=== PATIENT | female | born 1940 | race Caucasian/White ===

== ENCOUNTER 2019-11-27 16:32 | Observation (INO) | payer MEDICARE, BC ==
--- NOTE | 2019-11-27 18:43 | ED ---
Neuro HPI - General Chief Complaint: Dizziness Stated Complaint: Neuro/dizziness Time Seen by Provider: 11/27/19 16:36 Source: EMS, RN notes reviewed, old records reviewed Mode of arrival: EMS Limitations: no limitations - History of Present Illness Is the patient presenting with stroke symptoms?: Yes -: unknown Initial Comments: This is a 79-year-old female accepted in transfer for evaluation and possible CVA she complains of right lower extremity weakness, also dizziness and some ataxia with a near syncopal event. Patient continuing to complain of same complaints currently. No headache chest pain shortness breath, no other new significant complaints no change in her symptoms, weakness and numbness is not better dizziness is improved she does not feel like she will pass out she does have history of high blood pressure high cholesterol and diabetes Location: right leg, ataxia History of same: No Place: work (Patient was getting her hair cut) Quality: weak, numb Improves With: none Worsens With: none On Anticoagulants: No Context: gradual onset (Right lower extremity weakness), sudden onset (Near syncopal event) Associated Symptoms: weakness Treatments Prior to Arrival: none - Related Data Home Medications: Home Medications Medication Instructions Recorded Confirmed Albuterol Sulfate [Ventolin HFA] 1 - 2 puff INHALATION RT-Q4H PRN 11/27/19 11/27/19 Allopurinol [Zyloprim] 100 mg PO BID 11/27/19 11/27/19 Ergocalciferol [Vitamin D2] 50,000 unit PO Q30D 11/27/19 11/27/19 Ferrous Sulfate [Feosol] 325 mg PO BID 11/27/19 11/27/19 Furosemide [Lasix] 40 mg PO DAILY 11/27/19 11/27/19 Gabapentin [Neurontin] 100 mg PO HS 11/27/19 11/27/19 Glimepiride [Amaryl] 2 mg PO AC-BID 11/27/19 11/27/19 HYDROcodone/APAP 5-325MG [[place] 1 tab PO Q8H PRN 11/27/19 11/27/19 5-325] Ipratropium-Albuterol Nebulize 3 ml INHALATION RT-QID 11/27/19 11/27/19 [Duoneb 0.5 mg-3 mg/3 ml Soln] Losartan [Cozaar] 25 mg PO DAILY 11/27/19 11/27/19 Metoprolol Succinate [Toprol XL] 150 mg PO DAILY 11/27/19 11/27/19 Sevelamer [Renvela] 800 mg PO AC-BID 11/27/19 11/27/19 amLODIPine [Norvasc] 5 mg PO BID 11/27/19 11/27/19 Allergies/Adverse Reactions: Allergies Allergy/AdvReac Type Severity Reaction Status Date / Time No Known Allergies Allergy Verified 11/27/19 18:35 Review of Systems ROS Statement: Those systems with pertinent positive or pertinent negative responses have been documented in the HPI. ROS Other: All systems not noted in ROS Statement are negative. General Exam Limitations: no limitations General appearance: alert, in no apparent distress Head exam: Present: atraumatic, normocephalic, normal inspection Eye exam: Present: normal appearance, PERRL, EOMI. Absent: scleral icterus, conjunctival injection, periorbital swelling ENT exam: Present: normal exam, mucous membranes moist Neck exam: Present: normal inspection. Absent: tenderness, meningismus, lymphadenopathy Respiratory exam: Present: normal lung sounds bilaterally. Absent: respiratory distress, wheezes, rales, rhonchi, stridor Cardiovascular Exam: Present: regular rate, normal rhythm, normal heart sounds. Absent: systolic murmur, diastolic murmur, rubs, gallop, clicks GI/Abdominal exam: Present: soft, normal bowel sounds. Absent: distended, t enderness, guarding, rebound, rigid Extremities exam: Present: normal inspection, full ROM, normal capillary refill. Absent: tenderness, pedal edema, joint swelling, calf tenderness Back exam: Present: normal inspection Neurological exam: Present: alert, oriented X3, CN II-XII intact Psychiatric exam: Present: normal affect, normal mood Skin exam: Present: warm, dry, intact, normal color. Absent: rash Stroke MDM - NIH Stroke Scale 1a. Level of Consciousness: (0) alert 1b. LOC Questions: (0) answers correctly 1c. LOC Commands: (0) performs tasks correctly 2. Best Gaze: (0) normal 3. Visual: (0) no visual loss 4. Facial Palsy: (0) normal symmetrical movement 5a. Motor Arm Left: (0) no drift 5b. Motor Arm Right: (0) no drift 6a. Motor Leg Left: (0) no drift 6b. Motor Leg Right: (2) some gravity effort 7. Limb Ataxia: (0) absent 8. Sensory: (0) normal 9. Best Language: (0) no aphasia 10. Dysarthria: (0) normal 11. Extinction/Inattention: (0) no abnormality - Thrombolytic Inclusion/Exclusion Thrombolytic Exclusion Criteria: Symptom Onset > 4.5 Hours - Medical Decision Making 79 female ER for neurological evaluation. Patient having some ataxia dizziness and right lower extremity weakness. Patient be admitted for neurology evaluation and hydration Past Medical History Past Medical History: Diabetes Mellitus, Hyperlipidemia, Hypertension History of Any Multi-Drug Resistant Organisms: None Reported Past Surgical History: Orthopedic Surgery, Tonsillectomy Additional Past Surgical History / Comment(s): R HIP REPLACEMENT Past Psychological History: No Psychological Hx Reported Smoking Status: Former smoker Past Alcohol Use History: None Reported Past Drug Use History: None Reported Course Vital Signs 11/27/19 11/27/19 11/27/19 16:36 17:00 18:00 Temperature 98.7 F Pulse Rate 67 64 60 Respiratory 16 16 16 Rate Blood Pressure 116/52 101/53 112/51 O2 Sat by Pulse 97 95 97 Oximetry - Reevaluation(s) Reevaluation #1: 11/27/19 19:10 Medical record and transfer paperwork are reviewed and history transferring physician Reevaluation #2: 11/27/19 19:10 Patient has no improvement in symptoms but no new complaints - Consultations Consultation #1: spoke w Dr Rosario was agreeable for an admission Disposition Clinical Impression: Dehydration, CVA (cerebral vascular accident) Disposition: ADMITTED IP TO THIS [facility] Condition: Fair Is patient prescribed a controlled substance at d/c from ED?: No Referrals: Jorge Duvall MD [Primary Care Provider] - 1-2 days
[2019-11-27] MEDS ORDERED: ASPIRIN 325 MG TAB PO STA (18:57)
[2019-11-27] MEDS: SODIUM CHLORIDE 0.9% 1,000 ML IV SCH (19:18)
[2019-11-27 22:38] LABS: Glucose,Whole Blood 122 mg/dL (75-99)
[2019-11-27] MEDS: ATORVASTATIN 80 MG TAB PO SCH (22:59)
[2019-11-28 06:20] LABS: Glucose,Whole Blood 133 mg/dL (75-99)
[2019-11-28 07:03] LABS: Cholesterol 210 mg/dL (<200); HDL Cholesterol 45 mg/dL (40-60); LDL Cholesterol,Calculated 125 mg/dL (0-99); Triglycerides 198 mg/dL (<150)
[2019-11-28] MEDS: SODIUM CHLORIDE 0.9% 1,000 ML IV SCH ×2 (07:54→17:31)
--- NOTE | 2019-11-28 10:55 | P.CNNES ---
History of Present Illness Consult date: 11/28/19 Requesting physician: Franklin Armendariz Reason for Consult: CVA History of Present Illness: Patient is a 79-year-old female with history of hypertension, diabetes, X tobacco use, also with renal insufficiency, states that yesterday she went to have her hair done. At around 10:30 AM, after she was done, she tried to get into the other chair. At that time she felt disoriented, did not know where she was at, felt dizzy. She sat down in the chair. She tried to get up and she could not. She felt her right leg was weaker than left. She called her daughter, who came over and patient daughter agreed that at that time patient was disoriented, not grasping what was said, her speech was slow, mild slurring. She did not notice any obvious facial droop. Patient was having difficulty getting up which is not usual for her. She does not use any assistive device or cane or walker otherwise. Patient's daughter took her to the [facility] where she underwent CT of the head, chest x-ray and blood tests which according to patient's family was negative. I do not see any records from [facility] in the chart. Patient was transferred to [facility] for neurological evaluation, and she arrived here at 4:32 PM. Patient at that time was not a candidate for TPA. Patient's blood pressure on arrival was 116/52, pulse rate 67 temperature 98.7. Her blood pressure did drop down to 90/71 at one point. Patient's family states that she was still speaking slowly, not at baseline yesterday, but this morning she woke up and his back to baseline. Her speech, language functions, gait mobility is all back to normal. No deficits. Patient has history of diabetes for 10-12 years, hypertension, chronic kidney disease stage IV. She is not on any hemodialysis. She has smoked 1 pack per day for 40-50 years, quit 10 years ago. She does take aspirin 81 mg every day although does not list in her home medication list. Patient has history of bilateral CEA more than 10 years ago. She follows up now with Dr. Hernandez. Patient also has abdominal aortic aneurysm. Denies any previous history of TIAs or stroke. Review of Systems Completely unremarkable at this time. Denies chest pain shortness of breath wheezing cough abnormal pain nausea vomiting diarrhea diplopia headache Past Medical History Past Medical History: Diabetes Mellitus, Hyperlipidemia, Hypertension History of Any Multi-Drug Resistant Organisms: None Reported Past Surgical History: Orthopedic Surgery, Tonsillectomy Additional Past Surgical History / Comment(s): R HIP REPLACEMENT Past Psychological History: No Psychological Hx Reported Smoking Status: Former smoker Past Alcohol Use History: None Reported Past Drug Use History: None Reported - Past Family History Sister(s) Son(s) Family Medical History: Diabetes Mellitus Daughter(s) Family Medical History: Diabetes Mellitus Medications and Allergies Home Medications Medication Instructions Recorded Confirmed Type Albuterol Sulfate [Ventolin HFA] 1 - 2 puff INHALATION RT-Q4H PRN 11/27/19 11/27/19 History Allopurinol [Zyloprim] 100 mg PO BID 11/27/19 11/27/19 History Ergocalciferol [Vitamin D2] 50,000 unit PO Q30D 11/27/19 11/27/19 History Ferrous Sulfate [Feosol] 325 mg PO BID 11/27/19 11/27/19 History Furosemide [Lasix] 40 mg PO DAILY 11/27/19 11/27/19 History Gabapentin [Neurontin] 100 mg PO HS 11/27/19 11/27/19 History Glimepiride [Amaryl] 2 mg PO AC-BID 11/27/19 11/27/19 History HYDROcodone/APAP 5-325MG [[place] 1 tab PO Q8H PRN 11/27/19 11/27/19 History 5-325] Ipratropium-Albuterol Nebulize 3 ml INHALATION RT-QID 11/27/19 11/27/19 History [Duoneb 0.5 mg-3 mg/3 ml Soln] Losartan [Cozaar] 25 mg PO DAILY 11/27/19 11/27/19 History Metoprolol Succinate [Toprol XL] 150 mg PO DAILY 11/27/19 11/27/19 History Sevelamer [Renvela] 800 mg PO AC-BID 11/27/19 11/27/19 History amLODIPine [Norvasc] 5 mg PO BID 11/27/19 11/27/19 History Allergies Allergy/AdvReac Type Severity Reaction Status Date / Time No Known Allergies Allergy Verified 11/27/19 18:35 Physical Examination - Vital Signs Vital Signs: Vital Signs Temp Pulse Pulse Pulse Resp BP BP 11/28/19 03:06 97.6 F 74 17 118/60 11/28/19 00:00 97.7 F 71 71 17 125/58 11/27/19 22:31 98.0 F 60 16 120/59 11/27/19 21:57 56 L 18 90/71 11/27/19 21:00 61 19 99/54 11/27/19 20:00 60 18 90/62 11/27/19 19:00 66 17 96/84 11/27/19 18:00 60 16 112/51 11/27/19 17:00 64 16 101/53 11/27/19 16:36 98.7 F 67 16 116/52 Pulse Ox 11/28/19 03:06 96 11/28/19 00:00 97 11/27/19 22:31 96 11/27/19 21:57 98 11/27/19 21:00 98 11/27/19 20:00 97 11/27/19 19:00 97 11/27/19 18:00 97 11/27/19 17:00 95 11/27/19 16:36 97 Intake and Output 11/27/19 11/28/19 11/28/19 22:59 06:59 14:59 Intake Total 240 Balance 240 Intake: Oral 240 Other: Voiding Method Toilet # Voids 1 Weight 81.647 kg 80 kg On examination patient is an elderly female, in no distress. Patient is alert awake oriented to time place and person. Speech and language functions are normal. Her voice is slightly hoarse but no aphasia or dysarthria. On cranial nerve examination pupils are round and reactive to light, visual doran are full, extraocular muscles muscles are intact with no nystagmus face is symmetric and tongue protrudes the midline. Palatal elevation and sensation hearing normal. On muscle strength testing there is no pronator drift and the strength is normal in arms and legs distally and proximally, reflexes are 1+ to 2 and plantars are withdrawal bilaterally. Sensory touch is equal with no neglect. No ataxia for [id number] testing. Tone and bulk of muscles normal. Patient was able to get up from the bed, and was walking fairly steadily back to baseline. No obvious bruit S1 and S2 audible. No peripheral edema. Results - Laboratory Findings Abnormal Lab Findings: Abnormal Labs 11/27/19 11/28/19 11/28/19 22:37 06:03 06:18 POC Glucose (mg/dL) 122 H 133 H Triglycerides 198 H Cholesterol 210 H LDL Cholesterol, Calc 125 H Assessment and Plan Assessment: * 79-year-old female with history of hypertension, diabetes, admitted with dizziness, slurred speech and difficulty with ambulation due to right leg weakness. Her symptoms now seems to have resolved with NIH stroke scale 0. Rule out CVA versus TIA. * Hypertension * Diabetes * History of bilateral CEA * Chronic renal disease, stage IV. * X tobacco use. Plan: * We will check MRI of the brain to evaluate for an acute stroke. MRA of the brain to rule out any intracranial atherosclerotic disease. * We will check carotid Doppler to rule out carotid re-stenosis * 2-D echo with bubble study to rule out PFO. * Her fasting a.m. lipid panel showed cholesterol 210, LDL 125, HDL 45 and triglycerides were 98. Patient has been started on statins. * We will check hemoglobin A1c. * Patient has been compliant with aspirin 81 mg daily prior to this event. This could be an aspirin failure. We will consider switching to Plavix.
[2019-11-28] MEDS: ASPIRIN 325 MG TAB PO SCH (11:41)
[2019-11-28 12:32] LABS: Glucose,Whole Blood 107 mg/dL (75-99)
--- NOTE | 2019-11-28 12:41 | P.HPIM ---
History of Present Illness 79-year-old pleasant femalegiven with complaints of a disorientation which appears to be confusion felt bit dizzy patient had a history of CVA in the past was on aspirin which was switched to Plavix by neurology. Patient apparently was ataxic as well symptoms lasted for 2 hours. Patient was not a candidate for TPA. Patient does have history of hypertension or diabetes mellitus used to smoke in the past doesn't smoke anymore does use oxygen at home. Patient's symptoms completely resolved patient has some generalized weakness beyond which there is no focal weakness patient denied any facial droop headache nausea vomiting a speech abnormality. Review of Systems REVIEW OF SYSTEMS: CONSTITUTIONAL: No fever, no malaise, no fatigue. HEENT: No recent visual problems or hearing problems. Denied any sore throat. CARDIOVASCULAR: No chest pain, orthopnea, PND, no palpitations, no syncope. PULMONARY: No shortness of breath, no cough, no hemoptysis. GASTROINTESTINAL: No diarrhea, no nausea, no vomiting, no abdominal pain. NEUROLOGICAL:as mentioned in HPI HEMATOLOGICAL: Denies any bleeding or petechiae. GENITOURINARY: Denies any burning micturition, frequency, or urgency. MUSCULOSKELETAL/RHEUMATOLOGICAL: Denies any joint pain, swelling, or any muscle pain. ENDOCRINE: Denies any polyuria or polydipsia. The rest of the 14-point review of systems is negative. Past Medical History Past Medical History: Diabetes Mellitus, Hyperlipidemia, Hypertension History of Any Multi-Drug Resistant Organisms: None Reported Past Surgical History: Orthopedic Surgery, Tonsillectomy Additional Past Surgical History / Comment(s): R HIP REPLACEMENT Past Psychological History: No Psychological Hx Reported Smoking Status: Former smoker Past Alcohol Use History: None Reported Past Drug Use History: None Reported - Past Family History Sister(s) Son(s) Family Medical History: Diabetes Mellitus Daughter(s) Family Medical History: Diabetes Mellitus Medications and Allergies Home Medications Medication Instructions Recorded Confirmed Type Albuterol Sulfate [Ventolin HFA] 1 - 2 puff INHALATION RT-Q4H PRN 11/27/19 11/27/19 History Allopurinol [Zyloprim] 100 mg PO BID 11/27/19 11/27/19 History Ergocalciferol [Vitamin D2] 50,000 unit PO Q30D 11/27/19 11/27/19 History Ferrous Sulfate [Feosol] 325 mg PO BID 11/27/19 11/27/19 History Furosemide [Lasix] 40 mg PO DAILY 11/27/19 11/27/19 History Gabapentin [Neurontin] 100 mg PO HS 11/27/19 11/27/19 History Glimepiride [Amaryl] 2 mg PO AC-BID 11/27/19 11/27/19 History HYDROcodone/APAP 5-325MG [[place] 1 tab PO Q8H PRN 11/27/19 11/27/19 History 5-325] Ipratropium-Albuterol Nebulize 3 ml INHALATION RT-QID 11/27/19 11/27/19 History [Duoneb 0.5 mg-3 mg/3 ml Soln] Losartan [Cozaar] 25 mg PO DAILY 11/27/19 11/27/19 History Metoprolol Succinate [Toprol XL] 150 mg PO DAILY 11/27/19 11/27/19 History Sevelamer [Renvela] 800 mg PO AC-BID 11/27/19 11/27/19 History amLODIPine [Norvasc] 5 mg PO BID 11/27/19 11/27/19 History Allergies Allergy/AdvReac Type Severity Reaction Status Date / Time No Known Allergies Allergy Verified 11/27/19 18:35 Physical Exam Vitals: Vital Signs Temp Pulse Pulse Pulse Resp BP BP 11/28/19 07:59 96.6 F L 59 L 59 L 18 126/59 126/59 11/28/19 03:06 97.6 F 74 17 118/60 11/28/19 00:00 97.7 F 71 71 17 125/58 11/27/19 22:31 98.0 F 60 16 120/59 11/27/19 21:57 56 L 18 90/71 11/27/19 21:00 61 19 99/54 11/27/19 20:00 60 18 90/62 11/27/19 19:00 66 17 96/84 11/27/19 18:00 60 16 112/51 11/27/19 17:00 64 16 101/53 11/27/19 16:36 98.7 F 67 16 116/52 Pulse Ox 11/28/19 07:59 99 11/28/19 03:06 96 11/28/19 00:00 97 11/27/19 22:31 96 11/27/19 21:57 98 11/27/19 21:00 98 11/27/19 20:00 97 11/27/19 19:00 97 11/27/19 18:00 97 11/27/19 17:00 95 11/27/19 16:36 97 Intake and Output 11/27/19 11/28/19 11/28/19 22:59 06:59 14:59 Intake Total 240 Balance 240 Intake: Oral 240 Other: Voiding Method Toilet Toilet # Voids 1 Weight 81.647 kg 80 kg PHYSICAL EXAMINATION: GENERAL: The patient is alert and oriented x3, not in any acute distress. Well developed, well nourished. HEENT: Pupils are round and equally reacting to light. EOMI. No scleral icterus. No conjunctival pallor. Normocephalic, atraumatic. No pharyngeal erythema. No thyromegaly. CARDIOVASCULAR: S1 and S2 present. No murmurs, rubs, or gallops. PULMONARY: Chest is clear to auscultation, no wheezing or crackles. ABDOMEN: Soft, nontender, nondistended, normoactive bowel sounds. No palpable organomegaly. MUSCULOSKELETAL: No joint swelling or deformity. EXTREMITIES: No cyanosis, clubbing, or pedal edema. NEUROLOGICAL: Gross neurological examination did not reveal any focal deficits. she does have some generalized weakness but beyond that there is no focal weakness patient has low stepping gait SKIN: No rashes. Results Labs: Abnormal Lab Results - Last 24 Hours (Table) 11/27/19 11/28/19 11/28/19 Range/Units 22:37 06:03 06:18 POC Glucose (mg/dL) 122 H 133 H (75-99) mg/dL Triglycerides 198 H (<150) mg/dL Cholesterol 210 H (<200) mg/dL LDL Cholesterol, Calc 125 H (0-99) mg/dL Thrombosis Risk Factor Assmnt - Choose All That Apply Each Factor Represents 1 point: Obesity (BMI >25) Each Risk Factor Represents 3 Points: Age 75 years or older Thrombosis Risk Factor Assessment Total Risk Factor Score: 4 Thrombosis Risk Factor Assessment Level: Moderate Risk Assessment and Plan Plan: -possible cerebrovascular accident for which patient will be worked up for with MRI and carotid Doppler and echocardiogram.patient will continue on Plavix and thepatient will be started on a statin patient's LDL is 125 -Hypertension -Type 2 diabetes mellitus: -chronic kidney disease stage IV continue with phosphate binders. -COPD chronic hypercapnic respiratory failure not in COPD exacerbation.
[2019-11-28 13:28] LABS: HCT 39.3 % (34.0-46.0); HGB 12.5 gm/dL (11.4-16.0); MCH 32.2 pg (25.0-35.0); MCHC 31.7 g/dL (31.0-37.0); MCV 101.5 fL (80.0-100.0); Macrocytosis Slight; Mean Platelet Volume 7.3; Platelet Count 196 k/uL (150-450); RBC 3.87 m/uL (3.80-5.40); WBC 10.4 k/uL (3.8-10.6)
--- NOTE | 2019-11-28 13:36 | ECHOF ---
Referral Reason:CVA versus TIA MEASUREMENTS -------- HEIGHT: 167.6 cm WEIGHT: 79.8 kg BP: 126/59 RVIDd: 3.7 cm (< 3.3) IVSd: 1.5 cm (0.6 - 1.1) LVIDd: 4.1 cm (3.9 - 5.3) LVPWd: 1.2 cm (0.6 - 1.1) IVSs: 1.9 cm LVIDs: 2.5 cm LVPWs: 1.9 cm LAESV Index (A-L): 29.94 ml/m Ao Diam: 2.5 cm (2.0 - 3.7) AV Cusp: 1.1 cm (1.5 - 2.6) LA Diam: 4.7 cm (2.7 - 3.8) MV EXCURSION: 11.640 mm (> 18.000) MV EF SLOPE: 38 mm/s (70 - 150) EPSS: 0.5 cm MV E John: 1.33 m/s MV DecT: 225 ms MV A John: 1.47 m/s MV E/A Ratio: 0.90 AV maxP.46 mmHg AV meanP.59 mmHg RAP: 5.00 mmHg RVSP: 32.51 mmHg FINDINGS -------- Sinus rhythm. This was a technically good study. The left ventricular size is normal. There is moderate concentric left ventricular hypertrophy. O verall left ventricular systolic function is normal with, an EF between 55 - 60 %. Left ventricular fillimg pressure cannot be estimated due to severe mitral annular calcification. The right ventricle is mildly enlarged. LA is midly dilated 29-33ml/m2. The right atrial size is normal. Interatrial and interventricular septum intact. There is moderate aortic valve sclerosis. There is no evidence of aortic regurgitation. Severe mitral annular calcification present. Oogn-do-fmcocmrv mitral regurgitation is present. Mild tricuspid regurgitation present. There is borderline pulmonary artery hypertension. The righ t ventricular systolic pressure, as measured by Doppler, is 32.51mmHg. Trace/mild (physiologic) pulmonic regurgitation. The aortic root size is normal. IVC Not well visulized. There is no pericardial effusion. CONCLUSIONS -------- 1. Sinus rhythm. 2. This was a technically good study. 3. The left ventricular size is normal. 4. There is moderate concentric left ventricular hypertrophy. 5. Overall left ventricular systolic function is normal with, an EF between 55 - 60 %. 6. Left ventricular fillimg pressure cannot be estimated due to severe mitral annular calcification. 7. The right ventricle is mildly enlarged. 8. LA is midly dilated 29-33ml/m2. 9. The right atrial size is normal. 10. Interatrial and interventricular septum intact. 11. There is moderate aortic valve sclerosis. 12. There is no evidence of aortic regurgitation. 13. Severe mitral annular calcification present. 14. Jpau-cm-tjhktyio mitral regurgitation is present. 15. Mild tricuspid regurgitation present. 16. There is borderline pulmonary artery hypertension. 17. The right ventricular systolic pressure, as measured by Doppler, is 32.51mmHg. 18. Trace/mild (physiologic) pulmonic regurgitation. 19. The aortic root size is normal. 20. IVC Not well visulized. 21. There is no pericardial effusion. MERCERIZING RANGE FEEDER: Dia Fernandez RDCS
[2019-11-28 13:45] LABS: Albumin 3.6 g/dL (3.5-5.0); Calcium 9.1 mg/dL (8.4-10.2); Total Bilirubin 0.6 mg/dL (0.2-1.3); Total Protein 6.4 g/dL (6.3-8.2)
--- NOTE | 2019-11-28 13:49 | US ---
EXAMINATION TYPE: US carotid duplex BILAT DATE OF EXAM: 11/28/2019 COMPARISON: NONE CLINICAL HISTORY: CVA versus TIA. CVA, history of bilateral endarterectomy, exam done portable. EXAM MEASUREMENTS: RIGHT: Peak Systolic Velocity (PSV) cm/sec ----- Right CCA: 75.4 ----- Right ICA: 73.5 ----- Right ECA: 68.0 ICA/CCA ratio: 1.0 RIGHT: End Diastole cm/sec ----- Right CCA: 9.9 ----- Right ICA: 12.7 ----- Right ECA: 7.9 LEFT: Peak Systolic Velocity (PSV) cm/sec ----- Left CCA: 112.8 ----- Left ICA: 145.0 ----- Left ECA: 87.5 ICA/CCA ratio: 1.3 LEFT: End Diastole cm/sec ----- Left CCA: 14.7 ----- Left ICA: 22.9 ----- Left ECA: 0.0 VERTEBRALS (direction of flow): Right Vertebral: Antegrade Left Vertebral: Antegrade Rhythm: Normal Bilateral intimal thickening, elevated velocity - proximal left ICA, no significant stenosis. IMPRESSION: 1. Bilateral intimal thickening and atherosclerotic plaque with no significant hemodynamic stenosis. Criteria for Assigning % of Stenosis / Diameter reduction (Estimation based on the indirect measurements of the internal carotid artery velocities (ICA PSV). 1. Normal (no stenosis)=ICA PSV < 125 cm/s: ratio < 2.0: ICA EDV<40 cm/s. 2. Less than 50% stenosis=ICA PSV < 125 cm/s: ratio < 2.0: ICA EDV<40 cm/s. 3. 50 to 69% stenosis=ICA PSV of 125 to 230 cm/s: ration 2.0 ? 4.0: ICA EDV 40-100 cm/s. 4. Greater than 70% stenosis to near occlusion= ICA PSV > 230 cm/s: ratio > 4.0: ICA EDV > 100 cm/s. 5. Near occlusion= ICA PSV velocities may be low or undetectable: variable ratio and ICA EDV. 6. Total occlusion=unable to detect flow.
[2019-11-28 13:54] LABS: Potassium 4.7 mmol/L (3.5-5.1)
[2019-11-28] MEDS ORDERED: IPRATROPIUM-ALBUTEROL 3 ML NEB INHALATION PRN (16:13)
[2019-11-28 16:34] LABS: Glucose,Whole Blood 120 mg/dL (75-99)
[2019-11-28] MEDS ORDERED: FUROSEMIDE 40 MG TAB PO SCH (16:45)
[2019-11-28] MEDS: GLIMEPIRIDE 2 MG TAB PO SCH (17:30)
[2019-11-28] MEDS: SEVELAMER 800 MG TAB PO SCH (17:30)
[2019-11-28 20:06] LABS: Hemoglobin A1C 6.4 % (4.0-6.0)
[2019-11-28 20:27] LABS: Glucose,Whole Blood 158 mg/dL (75-99)
[2019-11-28] MEDS ORDERED: GABAPENTIN 100 MG CAP PO SCH (21:00)
[2019-11-28] MEDS: IPRATROPIUM-ALBUTEROL 3 ML NEB INHALATION SCH (21:02)
[2019-11-28] MEDS ORDERED: MELATONIN 5 MG TABLET PO SCH (21:15)
[2019-11-28] MEDS: ALLOPURINOL 100 MG TAB PO SCH (21:24)
[2019-11-28] MEDS: amLODIPine 5 MG TAB PO SCH (21:24)
[2019-11-28] MEDS: ATORVASTATIN 80 MG TAB PO SCH (21:24)
[2019-11-28] MEDS: FERROUS SULFATE 325 MG TAB PO SCH (21:24)
[2019-11-29 06:18] LABS: Glucose,Whole Blood 133 mg/dL (75-99)
[2019-11-29] MEDS: GLIMEPIRIDE 2 MG TAB PO SCH ×2 (06:53→17:51)
[2019-11-29] MEDS: SEVELAMER 800 MG TAB PO SCH ×2 (06:53→17:51)
[2019-11-29] MEDS: SODIUM CHLORIDE 0.9% 1,000 ML IV SCH ×2 (06:54→12:38)
[2019-11-29] MEDS ORDERED: ACETAMINOPHEN TAB 325 MG TAB PO PRN (08:07)
[2019-11-29] MEDS ORDERED: ONDANSETRON 4 MG/2 ML VIAL IVP PRN (08:07)
[2019-11-29] MEDS ORDERED: METOPROLOL SUCCINATE (ER) 50 MG TAB.ER.24H PO SCH (09:00)
[2019-11-29] MEDS ORDERED: LOSARTAN 25 MG TAB PO SCH (09:00)
[2019-11-29] MEDS: IPRATROPIUM-ALBUTEROL 3 ML NEB INHALATION SCH ×4 (09:20→19:03)
[2019-11-29] MEDS: ALLOPURINOL 100 MG TAB PO SCH (10:14)
[2019-11-29] MEDS: ASPIRIN 325 MG TAB PO SCH (10:14)
[2019-11-29] MEDS: amLODIPine 5 MG TAB PO SCH (10:14)
[2019-11-29] MEDS: FERROUS SULFATE 325 MG TAB PO SCH (10:15)
[2019-11-29 12:31] LABS: Glucose,Whole Blood 196 mg/dL (75-99)
--- NOTE | 2019-11-29 12:53 | P.DS ---
Providers Date of admission: 11/27/19 18:57 Attending physician: Anthony Tinajero MD Consults: 11/27/19 18:58 Consult Physician Routine Consulting Provider: Chele Marquez Consult Reason/Comments: cva Do you want consulting provider notified?: Yes Primary care physician: Jorge Duvall MD Hospital Course: 79-year-old pleasant femalegiven with complaints of a disorientation which appears to be confusion felt bit dizzy patient had a history of CVA in the past was on aspirin which was switched to Plavix by neurology. Patient apparently was ataxic as well symptoms lasted for 2 hours. Patient was not a candidate for TPA. Patient does have history of hypertension or diabetes mellitus used to smoke in the past doesn't smoke anymore does use oxygen at home. Patient's symptoms completely resolved patient has some generalized weakness beyond which there is no focal weakness patient denied any facial droop headache nausea vomiting a speech abnormality. 11/29/2019 Patient is doing much better regarding the stroke but patient started having body aches didn't feel well all day last night had a low-grade fever today. She is comparing of cough denied any diarrhea. Patient appears to have viral upper respiratory infection but I'll do septic workup with the chest x-ray a urine culture and blood culture. Echocardiogram carotid Doppler within normal limits patient is awaiting MRI patient will not require any home care. Patient doesn't have any residual stroke symptoms. Actually wanted to keep her 1 night because of the strong family is requesting if she can be discharged patient doesn't have any wheezing today patient will be discharged if he a urine cultures chest x-ray within normal limits not pertinent antibiotics at family was instructed to go to ER again if she starts having fever and fevers doesn't get better PHYSICAL EXAMINATION: GENERAL: The patient is alert and oriented x3, not in any acute distress. Well developed, well nourished. HEENT: Pupils are round and equally reacting to light. EOMI. No scleral icterus. No conjunctival pallor. Normocephalic, atraumatic. No pharyngeal erythema. No thyromegaly. CARDIOVASCULAR: S1 and S2 present. No murmurs, rubs, or gallops. PULMONARY: Chest is clear to auscultation, no wheezing or crackles. ABDOMEN: Soft, nontender, nondistended, normoactive bowel sounds. No palpable organomegaly. MUSCULOSKELETAL: No joint swelling or deformity. EXTREMITIES: No cyanosis, clubbing, or pedal edema. NEUROLOGICAL: Gross neurological examination did not reveal any focal deficits. SKIN: No rashes. Assessment and Plan Plan: -possible cerebrovascular accident workup and results as mentioned above -Possible viral URI: Management as mentioned above -Hypertension -Type 2 diabetes mellitus: -chronic kidney disease stage IV continue with phosphate binders. Patient's present creatinine is 2.4 -COPD chronic hypercapnic respiratory failure not in COPD exacerbation. Patient Condition at Discharge: Fair Plan - Discharge Summary New Discharge Prescriptions: No Action Metoprolol Succinate [Toprol XL] 150 mg PO DAILY Ipratropium-Albuterol Nebulize [Duoneb 0.5 mg-3 mg/3 ml Soln] 3 ml INHALATION RT-QID Gabapentin [Neurontin] 100 mg PO HS Ergocalciferol [Vitamin D2] 50,000 unit PO Q30D amLODIPine [Norvasc] 5 mg PO BID HYDROcodone/APAP 5-325MG [Ashkum 5-325] 1 tab PO Q8H PRN PRN Reason: Pain Furosemide [Lasix] 40 mg PO DAILY Ferrous Sulfate [Feosol] 325 mg PO BID Allopurinol [Zyloprim] 100 mg PO BID Albuterol Sulfate [Ventolin HFA] 1 - 2 puff INHALATION RT-Q4H PRN PRN Reason: Shortness Of Breath Sevelamer [Renvela] 800 mg PO AC-BID Losartan [Cozaar] 25 mg PO DAILY Glimepiride [Amaryl] 2 mg PO AC-BID Discharge Medication List Albuterol Sulfate [Ventolin HFA] 1 - 2 puff INHALATION RT-Q4H PRN 11/27/19 [History] Allopurinol [Zyloprim] 100 mg PO BID 11/27/19 [History] Ergocalciferol [Vitamin D2] 50,000 unit PO Q30D 11/27/19 [History] Ferrous Sulfate [Feosol] 325 mg PO BID 11/27/19 [History] Furosemide [Lasix] 40 mg PO DAILY 11/27/19 [History] Gabapentin [Neurontin] 100 mg PO HS 11/27/19 [History] Glimepiride [Amaryl] 2 mg PO AC-BID 11/27/19 [History] HYDROcodone/APAP 5-325MG [Ashkum 5-325] 1 tab PO Q8H PRN 11/27/19 [History] Ipratropium-Albuterol Nebulize [Duoneb 0.5 mg-3 mg/3 ml Soln] 3 ml INHALATION RT-QID 11/27/19 [History] Metoprolol Succinate [Toprol XL] 150 mg PO DAILY 11/27/19 [History] Sevelamer [Renvela] 800 mg PO AC-BID 11/27/19 [History] Aspirin 325 mg PO DAILY #30 tab 11/29/19 [Rx] Atorvastatin [Lipitor] 40 mg PO HS #30 tab 11/29/19 [Rx] Losartan [Cozaar] 50 mg PO DAILY #0 11/29/19 [Rx] Follow up Appointment(s)/Referral(s): Jorge Duvall MD [Primary Care Provider] - 1-2 days
[2019-11-29 13:45] VITALS: RESP 16
--- NOTE | 2019-11-29 15:06 | XR ---
EXAMINATION TYPE: XR chest 2V DATE OF EXAM: 11/29/2019 COMPARISON: NONE TECHNIQUE: PA and lateral views submitted. HISTORY: Cough possible pneumonia FINDINGS: The lungs are clear and there is no pneumothorax, pleural effusion, or focal pneumonia. Hypertrophi c change of the spine noted. Surgical clips in the right axilla. Arthropathy of the shoulders. Coarse shaq interstitium with subsegmental basilar consolidation. IMPRESSION: 1. Basilar atelectasis favored over pneumonia correlate for chronic interstitial lung disease or bron chitis..
--- NOTE | 2019-11-29 15:13 | MR ---
EXAMINATION TYPE: MR brain wo con DATE OF EXAM: 11/29/2019 COMPARISON: None HISTORY: CVA versus TIA CONTRAST: Performed utilizing 0 mL intravenous Gadavist gadolinium contrast. TECHNIQUE: Multiplanar, multiecho imaging on a 3.0 Keyla magnet is performed through the brain. Stud y is performed within 24 hours of arrival to the hospital. The craniovertebral junction is normal. The pituitary is normal. Optic chiasm is normal. Diffusion-weighted imaging is performed. No abnormal hyperintensity is present to suggest an acute i ntracranial infarct or acute ischemic change. There are scattered punctate areas of hyperintensity on T2 and Inversion Recovery weighted sequences which are non-specific but can be related to chronic microvascular ischemic changes. This includes pe riventricular white matter, centrum semiovale, and brainstem. Ventricles and sulci are slightly prominent for the patient age. IMPRESSIONS: 1. Multiple scattered areas of deep white matter changes. 2. No acute ischemic changes.
--- NOTE | 2019-11-29 15:17 | MR ---
EXAMINATION TYPE: MR angio head wo con DATE OF EXAM: 11/29/2019 COMPARISON: 11/29/2025 MRI brain HISTORY: CVA versus TIA CONTRAST: None TECHNIQUE: Multiplanar multiecho imaging on a 3.0 Keyla magnet is performed through the havasupai of Alfon[place] lis. 3-D [id number] imaging is performed. Source images are reviewed on the computer in the axi al plane. Reconstructed images rotating on the computer are reviewed. FINDINGS: The internal carotid arteries bifurcate normally into A1 and M1 segments. The A2 segments are normal. Middle cerebral artery branches are normal. Anterior communicating artery is patent. The right posterior communicating artery is patent. The left posterior communicating artery is patent. Vertebrobasilar arteries within the [id number] are normal. Posterior cerebral vasculature is norm al. No suspicious aneurysm or aneurysmal dilatation is evident. No obstructions are identified. No significant flow-limiting stenosis is evident. IMPRESSIONS: 1. NORMAL MRA [place].
--- NOTE | 2019-11-29 15:21 | P.PN ---
Subjective Progress Note Date: 11/29/19 Patient denies any new neurological symptoms. She feels fine. Objective - Vital Signs Vital signs: Vital Signs Temp 99.4 F 11/29/19 11:20 Pulse 92 11/29/19 12:34 Resp 16 11/29/19 11:20 BP 101/58 11/29/19 11:20 Pulse Ox 93 L 11/29/19 11:20 Intake & Output 11/28/19 11/29/19 11/29/19 18:59 06:59 18:59 Intake Total 476 360 Balance 476 360 Weight 80.7 kg Intake: Oral 476 360 Other: Voiding Method Toilet Toilet Toilet # Voids 1 1 1 - Exam Patient's mental status, speech and language functions are normal. Cranial nerves are normal. Muscle strength and gait normal. - Labs CBC & Chem 7: 11/28/19 13:05 11/28/19 13:05 Labs: Abnormal Lab Results - Last 24 Hours (Table) 11/28/19 11/28/19 11/28/19 Range/Units 06:03 16:33 20:26 POC Glucose (mg/dL) 120 H 158 H (75-99) mg/dL Hemoglobin A1c 6.4 H (4.0-6.0) % 11/29/19 11/29/19 Range/Units 06:17 12:25 POC Glucose (mg/dL) 133 H 196 H (75-99) mg/dL Hemoglobin A1c (4.0-6.0) % Assessment and Plan Assessment: * Probable TIA manifesting with dizziness, slurred speech and difficulty with ambulation due to right leg weakness. Her symptoms have resolved with NIH stroke scale 0. Patient probably had TIA. No evidence of CVA noted on the M RI of the brain. * Hypertension * Diabetes * History of bilateral CEA * Chronic renal disease, stage IV. * X tobacco use. Plan: * MRI of the brain revealed no acute stroke. There is some small vessel disease noted, and previous lacunar strokes involving basal ganglia. No acute process. MRA of the brain also looks normal. * Carotid Doppler showed bilateral intimal thickening and atherosclerotic plaque with no significant hemodynamic stenosis. Antegrade flow in both vertebral arteries. * 2-D echo revealed normal left ventricular size, EF 55-60%, left ventricular filling pressure cannot be estimated due to severe mitral annular calcification. Left atrium is mildly dilated. Interatrial and interventricular septum intact. Moderate aortic valve sclerosis. Severe m itral annular calcification. Mild to moderate mitral regurgitation. to rule out PFO. * Her fasting a.m. lipid panel showed cholesterol 210, LDL 125, HDL 45 and triglycerides were 98. Patient has been started on statins. * Hemoglobin A1c 6.4. * Patient has been compliant with aspirin 81 mg daily prior to this event. This could be an aspirin failure. Patient's MRI of the brain revealed significant small vessel disease. I discussed with patient about switching from aspirin to Plavix 75 mg. Patient declined. I informed her that other choice would be to increase the dose of aspirin to 2 baby aspirins or a full aspirins if no medical contraindication. Patient states that she will discuss with her primary physician before making any changes. Patient is therefore clear for discharge from neurology standpoint and to follow up with her primary physician within 3-5 days.
[2019-11-29 16:53] LABS: Glucose,Whole Blood 101 mg/dL (75-99)
[2019-11-29 17:07] VITALS: BP 116/81; PULSE 51; TEMP 97.5
[2019-12-14] MEDS ORDERED: ERGOCALCIFEROL 50,000 UNIT CAP PO SCH (12:00)
== END 2019-11-29 19:20 | disposition home or self-care (01) ==
LOC: EC 16:32 → 3SCARD 18:57 → INTOOBSV 18:57 → 3SCARD 21:51
PROVIDERS: ADMIT Internal Medicine; ATTEND Internal Medicine
DX: R41.0 Disorientation, unspecified (principal); R42 Dizziness and giddiness; R53.1 Weakness; R27.0 Ataxia, unspecified; I12.9 Hypertensive chronic kidney disease with stage 1 through stage 4 chronic kidney disease, or unspecified chronic kidney disease; E11.22 Type 2 diabetes mellitus with diabetic chronic kidney disease; N18.4 Chronic kidney disease, stage 4 (severe); J44.9 Chronic obstructive pulmonary disease, unspecified; J96.92 Respiratory failure, unspecified with hypercapnia; E86.0 Dehydration; E78.2 Mixed hyperlipidemia; E66.9 Obesity, unspecified; I71.4 Abdominal aortic aneurysm, without rupture; G93.9 Disorder of brain, unspecified; I65.23 Occlusion and stenosis of bilateral carotid arteries; R90.82 White matter disease, unspecified; R91.8 Other nonspecific abnormal finding of lung field; I08.3 Combined rheumatic disorders of mitral, aortic and tricuspid valves; Z68.28 Body mass index [BMI] 28.0-28.9, adult; Z79.899 Other long term (current) drug therapy; Z79.84 Long term (current) use of oral hypoglycemic drugs; Z79.82 Long term (current) use of aspirin; Z98.890 Other specified postprocedural states; Z90.89 Acquired absence of other organs; Z96.641 Presence of right artificial hip joint; Z87.891 Personal history of nicotine dependence; Z83.3 Family history of diabetes mellitus; Z86.73 Personal history of transient ischemic attack (TIA), and cerebral infarction without residual deficits
CPT/HCPCS: 96361 ×2; 96374; 99285; 94640 ×4; 93306; 97161; 97166; 92523; 80061; 80053; 84484; 85027; 87040; 87086; 87502; 83036; 71046; 93880; 70544; 70551; G0378 ×2; J2405